=== PATIENT | male | born 1945 | race Caucasian/White ===

== ENCOUNTER 2022-03-11 20:50 | Emergency (ER) | payer MEDICARE, OTHER, SELFPAY ==
[2022-03-11] VITALS (23 sets, daily range): BP systolic 185–203; BP diastolic 79–108; PULSE 62–82; RESP 12–24; TEMP 35.9; O2SAT 93–98
--- NOTE | 2022-03-11 21:00 | RT.EKG_ITS ---
APPROVED REPORT Exam: Resting ECG Reason for Exam: upper abd pain Patient Location: E HR:67 bpm ECG Measurements Heart Rate 67 AXIS WY 209 P 26 QRSd 95 QRS -24 QT 383 T 8 QTc 406 Conclusion Sinus rhythm...normal P axis, V-rate 60- 99 Probable left atrial enlargement...P >50mS, <-0.10mV V1 Probable left ventricular hypertrophy...multiple LVH criteria Physician: no stemi
--- NOTE | 2022-03-11 21:00 | DI.RAD_ITS ---
Exam(s) XR CHEST 2V PA LATERAL EXAM: XR CHEST 2V PA LATERAL CLINICAL HISTORY: upper abd pain TECHNIQUE: 2D digital imaging was performed. COMPARISON: No exams were available for comparison FINDINGS: The heart is not enlarged. The lungs are clear and well expanded. No pleural effusion seen. Mediastin al contours appear intact. IMPRESSION: Normal chest. RADIATION DOSE DELIVERED: Total DLP
[2022-03-11 21:36] LABS: Abs Immature Grans 0.05 10^3/uL (0.0-0.06); Absolute Basophil Count 0.06 10^3/uL (0.0-0.2); Absolute Eosinophil Count 0.21 10^3/uL (0.0-0.7); Absolute Lymphocyte Count 1.36 10^3/uL (1.2-3.4); Absolute Monocyte Count 0.61 10^3/uL (0.1-0.8); Absolute Neutrophil Count 9.51 10^3/uL (1.2-6.7); Basophils % 0.5; Eosinophils % 1.8; HCT 43.3 % (40.0-50.0); HGB 14.9 g/dL (13.5-17.5); Immature Grans % 0.4; Lymphocytes % 11.5; MCH 29.7 pg (27.0-33.0); MCHC 34.4 % (32.0-36.0); MCV 86 fL (80-95); MPV 10.2 fL (8.0-11.0); Monocytes % 5.2; Neutrophils % 80.6; Platelet Count 223 10^3/uL (130-400); RBC 5.01 10^6/uL (4.36-5.78); RDW 11.9 % (11.8-14.1); RDW-SD 37.8 fL
[2022-03-11] MEDS: Normal Saline 1,000 ML 1000 ML IV (21:45)
[2022-03-11] MEDS: HYDROmorphone 2 MG/ML SYR 0.5 MG IVP (21:47)
[2022-03-11] MEDS: Ondansetron 4 MG/2 ML VIAL IVP (21:48)
[2022-03-11 21:52] LABS: Prothrombin Time 9.9 sec (9.3-11.0)
[2022-03-11 21:57] LABS: ALT 25 U/L (16-63); AST 19 U/L (15-37); Albumin 4.1 g/dL (3.4-5.0); Alkaline Phosphatase 82 U/L (46-116); Anion Gap 7.9 mmol/L (3-11); BUN 23 mg/dL (7-18); Bilirubin, Total 0.3 mg/dL (0.2-1.0); CO2 29.1 mmol/L (21.0-32.0); CREATININE 1.2 mg/dL (0.70-1.30); Calcium 8.8 mg/dL (8.5-10.1); Chloride 103 mmol/L (98-107); Estimated GFR 62.67 (mL/min/1.73m2); Glucose 175 mg/dL (74-106); Potassium 3.8 mmol/L (3.5-5.1); Sodium 140 mmol/L (136-145); Troponin I < 50 ng/L (<or=60)
--- NOTE | 2022-03-11 22:07 | ED.GENADUL_ITS ---
Discharge Plan Disposition Patient Disposition: HOME Condition: Improving Discharge Details Clinical Impression: Abdominal pain Primary Care Provider: Unknown,Unknown ED Provider: Deejay Queen Home Meds and New Rx's Prescriptions: Continued carvedilol 25 mg Tablet 25 mg PO BID chlorthalidone 25 mg Tablet 12.5 mg PO DAILY multivitamin Tablet 1 tab PO DAILY losartan 100 mg Tablet 100 mg PO DAILY nitroglycerin [Nitrostat] 0.4 mg Tablet, Sublingual 0.4 mg sublingual DIRECTED amlodipine 2.5 mg Tablet 2.5 mg PO DAILY Discharge Instructions Instructions: Abdominal Pain (ED) Additional Instructions: Zofran and oxycodone as directed, oxycodone may cause drowsiness and/or constipation. You may want to take an [id number] stool softener while taking this medication. As we discussed, a bland diet, avoid fatty, greasy, fried foods. Please watch for new or worsening symptoms and return to the ER for any concerns. Lastly, I have placed you on the care management list to help expedite primary care follow-up locally as well as a surgical referral to discuss elective cholecystectomy. Referrals: Desirae Sanchez MD [ [facility] STAFF PHYSICIAN] - Medical Decision Making This is a 76-year-old gentleman with a past medical history of hypertension, cardiac stent placement roughly 10 years ago, known cholelithiasis, presenting to the ER for concern of a gallbladder attack. Patient states he was feeling well all day today and then had a rich sausage soup just before 6 PM and soon after began having a right upper quadrant pain, sharp associate with nausea and vomiting. He states this feels very similar to his previous gallbladder episode. He is typically seen in [place] but is in the process of splitting time between there and here, does not have any local follow-up here. Patient states that he did get evaluated by a surgical team, gallstones noted, and likely elective surgical cholecystectomy moving forward. He denies any fever, chest pain, shortness of breath, diarrhea, constipation, ripping or tearing sensation in his abdomen or chest. Patient presents afebrile. Plan is to obtain IV access, initiate routine screening laboratory values including an EKG and a single troponin although extremely low suspicion for atypical chest pain presentation. Patient will only have a single troponin as his symptoms did begin over 3 hours ago. Patient reports that he has not taken his hypertensive medications this evening. We will provide IV Zofran, fluids, Dilaudid, and reassess. Laboratory values reveal a minimal nonspecific leukocytosis of 11.80. Coags unremarkable. Electrolytes unremarkable. Creatinine 1.2 with a GFR of 62.67. LFTs unremarkable. Lipase 107. Troponin less than 50. Patient witnessed ambulating to the restroom steadily multiple times. Upon reevaluation he states that his nausea and vomiting has resolved completely and his pain is barely noticeable. He appears significantly more comfortable. We will provide 5 IV Lopressor as he did not take his blood pressure medications this evening. Repeat blood pressure of 188/78. Again he denies headache, visual changes, neck pain, chest pain, shortness of breath, ripping or tearing sensation. Patient reports that he is feeling much improved and is comfortable being discharged in his current condition. I will place him on the care management list to help expedite both outpatient primary care and surgical follow-up. I will also provide him a take-home pack of Zofran and oxycodone this evening. We did discuss the importance of adhering to a gallbladder friendly diet. Standard discharge and return precautions were provided. Patient understands, is agreeable to this plan, and has no additional questions or concerns upon discharge. This documentation was generated using [employer] dictation system, please disregard any oddities of phrase or misspellings. Imaging Data Radiologic Study: Attestation: I personally reviewed and interpreted this imaging study as follows: Imaging: X-Ray Radiologist's impression: PROCEDURE INFORMATION: Exam: XR Chest Exam date and time: 03/11/2022 10:02 PM Age: 76 years old Clinical indication: Other: Upper abd pain TECHNIQUE: Imaging protocol: Radiologic exam of the chest. Views: 2 views. COMPARISON: No relevant prior studies available. FINDINGS: Lungs: Mild chronic interstitial prominence. No consolidation. Pleural spaces: No pleural effusion. No pneumothorax. Heart/Mediastinum: Mildly tortuous aorta. No cardiomegaly. Bones/joints: Unremarkable. IMPRESSION: No acute findings. Lab Data Lab results reviewed: Yes I reviewed the patient's lab results. Labs: Laboratory Tests Range/Units 03/11/22 03/11/22 03/11/22 21:23 21:23 21:23 WBC (4.4-10.8) 10^3/uL 11.80 H RBC (4.36-5.78) 10^6/uL 5.01 Hgb (13.5-17.5) g/dL 14.9 Hct (40.0-50.0) % 43.3 MCV (80-95) fL 86 MCH (27.0-33.0) pg 29.7 MCHC (32.0-36.0) % 34.4 RDW (11.8-14.1) % 11.9 Plt Count (130-400) 10^3/uL 223 MPV (8.0-11.0) fL 10.2 Immature Gran % 0.4 Neutrophils % 80.6 Lymphocytes % 11.5 Monocytes % 5.2 Eosinophils % 1.8 Basophils % 0.5 Nucleated RBC % (0.0-0.3) % 0.0 Absolute Neutrophils (1.2-6.7) 10^3/uL 9.51 H Absolute Lymphocytes (1.2-3.4) 10^3/uL 1.36 Absolute Monocytes (0.1-0.8) 10^3/uL 0.61 Absolute Eosinophils (0.0-0.7) 10^3/uL 0.21 Absolute Basophils (0.0-0.2) 10^3/uL 0.06 PT (9.3-11.0) sec 9.9 INR (0.9-1.1) 1.0 APTT (21.0-27.5) sec 23.0 Sodium (136-145) mmol/L 140 Potassium (3.5-5.1) mmol/L 3.8 Chloride (98-107) mmol/L 103 Carbon Dioxide (21.0-32.0) mmol/L 29.1 Anion Gap (3-11) mmol/L 7.9 BUN (7-18) mg/dL 23 H Creatinine (0.70-1.30) mg/dL 1.2 Est GFR (CKD-EPI 2020) (mL/min/1.73m2) 62.67 Glucose (74-106) mg/dL 175 H Calcium (8.5-10.1) mg/dL 8.8 Magnesium (1.8-2.4) mg/dL 2.0 Total Bilirubin (0.2-1.0) mg/dL 0.3 AST (15-37) U/L 19 ALT (16-63) U/L 25 Alkaline Phosphatase (46-116) U/L 82 Troponin I (<or=60) ng/L < 50 Total Protein (6.4-8.2) g/dL 8.0 Albumin (3.4-5.0) g/dL 4.1 Lipase (73-393) U/L Range/Units 03/11/22 21:23 WBC (4.4-10.8) 10^3/uL RBC (4.36-5.78) 10^6/uL Hgb (13.5-17.5) g/dL Hct (40.0-50.0) % MCV (80-95) fL MCH (27.0-33.0) pg MCHC (32.0-36.0) % RDW (11.8-14.1) % Plt Count (130-400) 10^3/uL MPV (8.0-11.0) fL Immature Gran % Neutrophils % Lymphocytes % Monocytes % Eosinophils % Basophils % Nucleated RBC % (0.0-0.3) % Absolute Neutrophils (1.2-6.7) 10^3/uL Absolute Lymphocytes (1.2-3.4) 10^3/uL Absolute Monocytes (0.1-0.8) 10^3/uL Absolute Eosinophils (0.0-0.7) 10^3/uL Absolute Basophils (0.0-0.2) 10^3/uL PT (9.3-11.0) sec INR (0.9-1.1) APTT (21.0-27.5) sec Sodium (136-145) mmol/L Potassium (3.5-5.1) mmol/L Chloride (98-107) mmol/L Carbon Dioxide (21.0-32.0) mmol/L Anion Gap (3-11) mmol/L BUN (7-18) mg/dL Creatinine (0.70-1.30) mg/dL Est GFR (CKD-EPI 2020) (mL/min/1.73m2) Glucose (74-106) mg/dL Calcium (8.5-10.1) mg/dL Magnesium (1.8-2.4) mg/dL Total Bilirubin (0.2-1.0) mg/dL AST (15-37) U/L ALT (16-63) U/L Alkaline Phosphatase (46-116) U/L Troponin I (<or=60) ng/L Total Protein (6.4-8.2) g/dL Albumin (3.4-5.0) g/dL Lipase (73-393) U/L 107 ECG Data Attestation: I personally reviewed and interpreted this ECG (s) as follows: Interpretation: Sinus rhythm, ventricular rate 67. No STEMI. HPI General Mode of arrival: ambulatory . Date/Time Provider Initiated Documentation: 03/11/22 21:09 . Limitations to Documentation: no limitations . Information obtained by: patient and family . History of Present Illness 76 year old M presents to the emergency department with the chief complaint of RUQ pain, described as moderate, with intensity rated at 4. Quality is described as aching, and is localized to the abdomen. Patient reports no radiation. Patient started experiencing this hour(s) (3) and it has been constant. No relieving factors improve symptom(s), Eating worsens symptoms (ate a rich diner) . Patient notes nausea/vomiting; denies chest pain, cough and fever/chills. Patient did receive the following treatments prior to arrival, none Related Data Home Medications Medication Instructions Recorded Confirmed amlodipine 2.5 mg tablet 2.5 mg PO DAILY 03/11/22 03/11/22 carvedilol 25 mg tablet 25 mg PO BID 03/11/22 03/11/22 chlorthalidone 25 mg tablet 12.5 mg PO DAILY 03/11/22 03/11/22 losartan 100 mg tablet 100 mg PO DAILY 03/11/22 03/11/22 multivitamin 1 tab PO DAILY 03/11/22 03/11/22 nitroglycerin 0.4 mg sublingual 0.4 mg sublingual DIRECTED 03/11/22 03/11/22 tablet (Nitrostat) Allergies Allergy/AdvReac Type Severity Reaction Status Date / Time morphine Allergy Severe shock Unverified 03/11/22 21:06 General Stated Complaint: Abd Prob JUVENTINO: 3 Review of Systems Constitutional Constitutional: Denies fever(s) and Denies headache(s) ENT Ears, Nose, Mouth, and Throat: Denies headache(s) and Denies neck pain Cardiovascular Cardiovascular: Denies chest pain and Denies dyspnea Respiratory Respiratory: Denies cough and Denies dyspnea Gastrointestinal Gastrointestinal: Reports abdominal pain, Denies constipation, Denies diarrhea, Reports nausea and Reports vomiting Genitourinary Genitourinary: Denies dysuria Musculoskeletal Musculoskeletal: Denies back pain and Denies neck pain Integumentary/Breasts Skin/Breast: Denies rash Neurologic Neurologic: Denies headache(s) PFSH All Active Problems (Updated 03/11/22 @ 23:22 by ESTELITA Harvey) Abdominal pain (Acute) Social History Smoking/Tobacco Use Status: Former Tobacco Use Smoking risk assessment performed?: Yes Alcohol Intake: current Alcohol Intake frequency: 0-2 drinks per day Alcohol type: beer Drug use: Never Substance use type: does not use Do you feel safe at home: Yes Do you feel safe in your relationship?: Yes Exam Const General: cooperative, healthy appearing and other (Occasional dry heave) Orientation: alert, awake and oriented x3 HENMT Head: normal to inspection, normocephalic and atraumatic Face and sinus: normal facial exam Mouth: moist mucous membranes Throat: posterior oropharynx normal Eyes General: appearance normal, both eyes and all related structures Conjunctivae: conjunctivae normal Neck Neck: normal visual inspection, full ROM, no meningeal signs, trachea midline and supple Resp Effort & Inspection: normal respiratory effort and able to speak in complete sentences Auscultation: clear to auscultation bilaterally Cardio Rate: regular rate Rhythm: regular rhythm GI Inspection: normal to inspection Palpation: soft, not firm, no guarding, no pulsatile masses and tender in the RUQ; Clifton's sign negative Auscultation: normal bowel sounds Back/Spine/Pelvis Back: no CVA tenderness and No back tenderness Skin General skin exam: no rashes or lesions noted Neuro General: patient alert, patient awake, moves all extremities and no focal motor deficits Cognition: normal cognition Speech: speech normal Gait: normal gait Motor: muscle tone normal throughout Sensory Exam: no sensory deficits noted Extrem General: normal to inspection, full ROM and capillary refill normal Psych Appearance: grossly normal Mental Status: mental status grossly normal Course Vital Signs Vital signs: Vital Signs Temperature 35.9 C L 03/11/22 21:00 Pulse 78 03/11/22 21:00 Respiratory Rate 18 03/11/22 21:00 Blood Pressure 185/108 H 03/11/22 21:00 Pulse Oximetry 98 03/11/22 21:00 Temperature 35.9 C L 03/11/22 21:00 Temperature Source Skin 03/11/22 21:00 Pulse 71 03/11/22 21:30 Pulse 76 03/11/22 22:05 Respiratory Rate 22 03/11/22 22:05 Respiratory Effort 03/11/22 21:33 Blood Pressure 190/98 H 03/11/22 21:30 Blood Pressure Mean 122 03/11/22 21:30 Pulse Oximetry 94 03/11/22 22:05 Oxygen Delivery Method Room Air 03/11/22 21:00 Oxygen Flow Rate 0 03/11/22 21:00 Pain Level 1 03/11/22 22:06 Lab/Test Results Lab/Test Results: Laboratory Tests Range/Units 03/11/22 03/11/22 03/11/22 21:23 21:23 21:23 WBC (4.4-10.8) 10^3/uL 11.80 H RBC (4.36-5.78) 10^6/uL 5.01 Hgb (13.5-17.5) g/dL 14.9 Hct (40.0-50.0) % 43.3 MCV (80-95) fL 86 MCH (27.0-33.0) pg 29.7 MCHC (32.0-36.0) % 34.4 RDW (11.8-14.1) % 11.9 Plt Count (130-400) 10^3/uL 223 MPV (8.0-11.0) fL 10.2 Immature Gran % 0.4 Neutrophils % 80.6 Lymphocytes % 11.5 Monocytes % 5.2 Eosinophils % 1.8 Basophils % 0.5 Nucleated RBC % (0.0-0.3) % 0.0 Absolute Neutrophils (1.2-6.7) 10^3/uL 9.51 H Absolute Lymphocytes (1.2-3.4) 10^3/uL 1.36 Absolute Monocytes (0.1-0.8) 10^3/uL 0.61 Absolute Eosinophils (0.0-0.7) 10^3/uL 0.21 Absolute Basophils (0.0-0.2) 10^3/uL 0.06 PT (9.3-11.0) sec 9.9 INR (0.9-1.1) 1.0 APTT (21.0-27.5) sec 23.0 Sodium (136-145) mmol/L 140 Potassium (3.5-5.1) mmol/L 3.8 Chloride (98-107) mmol/L 103 Carbon Dioxide (21.0-32.0) mmol/L 29.1 Anion Gap (3-11) mmol/L 7.9 BUN (7-18) mg/dL 23 H Creatinine (0.70-1.30) mg/dL 1.2 Est GFR (CKD-EPI 2020) (mL/min/1.73m2) 62.67 Glucose (74-106) mg/dL 175 H Calcium (8.5-10.1) mg/dL 8.8 Magnesium (1.8-2.4) mg/dL 2.0 Total Bilirubin (0.2-1.0) mg/dL 0.3 AST (15-37) U/L 19 ALT (16-63) U/L 25 Alkaline Phosphatase (46-116) U/L 82 Troponin I (<or=60) ng/L < 50 Total Protein (6.4-8.2) g/dL 8.0 Albumin (3.4-5.0) g/dL 4.1 PAWSS Have you Been Recently Intoxicated or Drunk Within the Last 30 days?: No Have you Ever Experienced Previous Episodes of Alcohol Withdrawal?: No Have you ever Experienced Withdrawal Seizures?: No Have you ever Experienced Delirium Tremens(DT)s?: No Have you ever undergone Alcohol Rehabilitation Treatment (i.e, inpt ot outpatient treatment programs)?: No Have you ever Experienced Blackouts?: No Have you ever Combined Alcohol with other Downers within the last 90 days?: No Have you ever Combined Alcohol with any other Substance of Abuse during the last 90 days?: No Positive Blood Alcohol level on Presentation? [PCS.BAL]: No Evidence of Increased Autonomic Activity (i.e. HR>120, tremor, sweating, agitation, nausea)?: No Result: 0
[2022-03-11 22:13] LABS: Lipase 107 U/L (73-393)
--- NOTE | 2022-03-11 22:15 | DI.VRAD_ITS ---
PROCEDURE INFORMATION: Exam: XR Chest Exam date and time: 03/11/2022 10:02 PM Age: 76 years old Clinical indication: Other: Upper abd pain TECHNIQUE: Imaging protocol: Radiologic exam of the chest. Views: 2 views. COMPARISON: No relevant prior studies available. FINDINGS: Lungs: Mild chronic interstitial prominence. No consolidation. Pleural spaces: No pleural effusion. No pneumothorax. Heart/Mediastinum: Mildly tortuous aorta. No cardiomegaly. Bones/joints: Unremarkable. IMPRESSION: No acute findings. Dictated and Authenticated by: Gerhard Hernandez MD. Ordering:TRICIA Villalba MD
[2022-03-11] MEDS: Metoprolol 5 MG/5 ML VIAL IVP (22:37)
[2022-03-11] MEDS: Ondansetron O.D.T. 4 MG TABEF, 3 TABS/BTL PO (23:00)
--- NOTE | 2022-03-12 09:38 | CMACTNOTE_ITS ---
- If Service Date Differs Date of service: 03/12/22 Time of Service: 09:38 Care Management Activity Note Tony is seen in the ED for abdominal pain. At the request of ED provider, ERIC coordinates a referral to Romero Mack MD, of [facility], on-call provider, to assist Tony in obtaining a follow up appointment and in establishing care with a local PCP. He has Medicare for insurance.
== END 2022-03-12 00:03 | disposition home or self-care (01) ==
PROVIDERS: Emergency Provider Physician Assistant
DX: R10.11 Right upper quadrant pain (principal); I10 Essential (primary) hypertension; Z87.891 Personal history of nicotine dependence; Z95.5 Presence of coronary angioplasty implant and graft
CPT/HCPCS: 80053; 83690; 93005; 96361; 96374; 96375; 99284; 71046; 83735; 84484; 85025; 85610; 85730; 93010; 99285; J1170; J2405

== ENCOUNTER 2022-03-13 13:43 | Inpatient (IN) | payer MEDICARE, OTHER, SELFPAY ==
[2022-03-13] VITALS (13 sets, daily range): BP systolic 102–148; BP diastolic 53–69; PULSE 63–90; RESP 10–25; TEMP 36.3–37.4; O2SAT 91–100; BMI 24.4
--- NOTE | 2022-03-13 13:45 | DI.US_ITS ---
Exam(s) US ABDOMEN LIMITED EXAM: US ABDOMEN LIMITED CLINICAL HISTORY: RUQ, hx of gallstones TECHNIQUE: Ultrasound abdomen performed using standard protocol. COMPARISON: No exams were available for comparison FINDINGS: There is no ascites evident. LIVER: Liver is mildly hyperechoic indicating element of steatosis. GALLBLADDER/BILIARY: There are gallstones noted. In addition, the gallbladder wall is thickened to 9 -10 millimeters and exhibits a stripe sign, indicative of gallbladder wall edema. In addition, this patient was tender over this area during scanning. The common hepatic duct ismildly dilated, measuring 7mm at the level of madan hepatis. PANCREAS: Not well seen due to overlying bowel gas RIGHT KIDNEY:No evidence of solid mass, calculus, nor hydronephrosis. No cortical cysts evident. IMPRESSION: 1. There is both cholelithiasis and evidence of acute cholecystitis, as described above. Common hep atic duct is slightly dilated, measuring 7 millimeters. No obvious calculus in the CBD although the lower half of the CBD is difficult to assess on this study due to overlying bowel gas. Same is true for the pancreas which was not adequately visualized. 2. No other significant ultrasound findings in the right upper quadrant. 3. There is no ascites. DATA REPOSITORY:
--- NOTE | 2022-03-13 14:00 | W.ED.GENAD ---
Discharge Plan Disposition Patient Disposition: [facility] INPATIENT Condition: Serious Discharge Details Clinical Impression: Acute cholecystitis Primary Care Provider: Unknown,Unknown ED Provider: Deejay Queen Home Meds and New Rx's Prescriptions: No Action carvedilol 25 mg Tablet 25 mg PO BID chlorthalidone 25 mg Tablet 12.5 mg PO DAILY multivitamin Tablet 1 tab PO DAILY losartan 100 mg Tablet 100 mg PO DAILY nitroglycerin [Nitrostat] 0.4 mg Tablet, Sublingual 0.4 mg sublingual DIRECTED amlodipine 2.5 mg Tablet 2.5 mg PO DAILY Medical Decision Making This is a 76-year-old gentleman past medical history of hypertension, cardiac stent, known gallstones presenting for worsening right upper quadrant pain. Examination is concerning for acute cholecystitis. Will obtain IV access, routine screening laboratory values and obtain ultrasound of the right upper quadrant. Will provide 1 L IV fluid Laboratory values reveal leukocytosis of 18.31, will obtain blood cultures. Potassium 2.9. Will obtain EKG and replenished both p.o. and IV. Creatinine 1.2 with a GFR of 62.67. Total bili 0.8 AST 14 ALT 18 alk phosphatase 78 lipase 50 Ultrasound reveals both cholelithiasis and evidence of acute cholecystitis. Patient given IV Zosyn and I have requested a surgical consultation Case discussed with Dr. Sanchez who is agreeable to admit the patient This documentation was generated using [employer] dictation system, please disregard any oddities of phrase or misspellings. Medical Records Medical records reviewed: Yes I reviewed the patient's medical records. Imaging Data Radiologic Study: Attestation: I personally reviewed and interpreted this imaging study as follows: Imaging: Ultrasound Radiologist's impression: Exam(s) US ABDOMEN LIMITED EXAM: US ABDOMEN LIMITED CLINICAL HISTORY: RUQ, hx of gallstones TECHNIQUE: Ultrasound abdomen performed using standard protocol. COMPARISON: No exams were available for comparison FINDINGS: There is no ascites evident. LIVER: Liver is mildly hyperechoic indicating element of steatosis. GALLBLADDER/BILIARY: There are gallstones noted. In addition, the gallbladder wall is thickened to 9-10 millimeters and exhibits a stripe sign, indicative of gallbladder wall edema. In addition, this patient was tender over this area during scanning. The common hepatic duct ismildly dilated, measuring 7mm at the level of madan hepatis. PANCREAS: Not well seen due to overlying bowel gas RIGHT KIDNEY:No evidence of solid mass, calculus, nor hydronephrosis. No cortical cysts evident. IMPRESSION: 1. There is both cholelithiasis and evidence of acute cholecystitis, as described above. Common hepatic duct is slightly dilated, measuring 7 millimeters. No obvious calculus in the CBD although the lower half of the CBD is difficult to assess on this study due to overlying bowel gas. Same is true for the pancreas which was not adequately visualized. 2. No other significant ultrasound findings in the right upper quadrant. 3. There is no ascites. Lab Data Lab results reviewed: Yes I reviewed the patient's lab results. Labs: 03/13/22 14:43 Blood Blood Culture - Pending 03/13/22 14:43 Blood Blood Culture - Pending Laboratory Tests Range/Units 03/13/22 03/13/22 14:02 14:02 WBC (4.4-10.8) 10^3/uL 18.31 H RBC (4.36-5.78) 10^6/uL 5.05 Hgb (13.5-17.5) g/dL 14.9 Hct (40.0-50.0) % 42.6 MCV (80-95) fL 84 MCH (27.0-33.0) pg 29.5 MCHC (32.0-36.0) % 35.0 RDW (11.8-14.1) % 11.9 Plt Count (130-400) 10^3/uL 206 MPV (8.0-11.0) fL 10.1 Immature Gran % 0.5 Neutrophils % 80.3 Lymphocytes % 7.2 Monocytes % 11.8 Eosinophils % 0.0 Basophils % 0.2 Nucleated RBC % (0.0-0.3) % 0.0 Absolute Neutrophils (1.2-6.7) 10^3/uL 14.70 H Absolute Lymphocytes (1.2-3.4) 10^3/uL 1.32 Absolute Monocytes (0.1-0.8) 10^3/uL 2.16 H Absolute Eosinophils (0.0-0.7) 10^3/uL 0.00 Absolute Basophils (0.0-0.2) 10^3/uL 0.04 RBC Morphology Normal Sodium (136-145) mmol/L 132 L Potassium (3.5-5.1) mmol/L 2.9 L Chloride (98-107) mmol/L 96 L Carbon Dioxide (21.0-32.0) mmol/L 32.0 Anion Gap (3-11) mmol/L 4.0 BUN (7-18) mg/dL 24 H Creatinine (0.70-1.30) mg/dL 1.2 Est GFR (CKD-EPI 2020) (mL/min/1.73m2) 62.67 Glucose (74-106) mg/dL 150 H Calcium (8.5-10.1) mg/dL 8.4 L Total Bilirubin (0.2-1.0) mg/dL 0.8 AST (15-37) U/L 14 L ALT (16-63) U/L 18 Alkaline Phosphatase (46-116) U/L 78 Total Protein (6.4-8.2) g/dL 7.3 Albumin (3.4-5.0) g/dL 3.3 L Lipase (73-393) U/L 50 ECG Data Attestation: I personally reviewed and interpreted this ECG (s) as follows: Interpretation: Sinus rhythm, ventricular rate of 79, no STEMI. HPI General Mode of arrival: ambulatory. Date/Time Provider Initiated Documentation: 03/13/22 13:44. Limitations to Documentation: no limitations. Information obtained by: patient and family. HPI Narrative: This is a 76-year-old gentleman, past medical history of hypertension, cardiac stent placement, known gallstones, presenting for ongoing right upper quadrant pain, mild nausea, associated with fatigue. He lives in [place] but does have a second home here and will be here for quite some time. He was seen in the ER 2 days ago, evaluation completed and he was set up with the care management team to help expedite outpatient primary care follow-up as well as surgical referral. He states since his last visit he has less diffuse upper abdominal pain and it is more concentrated in the right upper quadrant. He has felt far more tired. He reports overall decreased p.o. intake. He reports mild nausea but no vomiting. No change in bowel or bladder function. Denies fever, chest pain, shortness of breath, radiation of pain into his back or flank. Related Data Home Medications Medication Instructions Recorded Confirmed amlodipine 2.5 mg tablet 2.5 mg PO DAILY 03/11/22 03/11/22 carvedilol 25 mg tablet 25 mg PO BID 03/11/22 03/11/22 chlorthalidone 25 mg tablet 12.5 mg PO DAILY 03/11/22 03/11/22 losartan 100 mg tablet 100 mg PO DAILY 03/11/22 03/11/22 multivitamin 1 tab PO DAILY 03/11/22 03/11/22 nitroglycerin 0.4 mg sublingual 0.4 mg sublingual DIRECTED 03/11/22 03/11/22 tablet (Nitrostat) Allergies Allergy/AdvReac Type Severity Reaction Status Date / Time morphine Allergy Severe shock Unverified 03/13/22 13:53 General Stated Complaint: Abd Prob JUVENTINO: 3 Review of Systems Constitutional Constitutional: Reports fatigue, Denies fever(s) and Denies weakness Cardiovascular Cardiovascular: Denies chest pain and Denies dyspnea Respiratory Respiratory: Denies cough and Denies dyspnea Gastrointestinal Gastrointestinal: Reports abdominal pain, Denies constipation, Denies diarrhea, Reports nausea and Denies vomiting Genitourinary Genitourinary: Denies dysuria Musculoskeletal Musculoskeletal: Denies back pain Integumentary/Breasts Skin/Breast: Denies rash Neurologic Neurologic: Denies weakness Endocrine Endocrine: Reports fatigue Hematologic/Lymphatic Hematologic/Lymphatic: Denies easy bleeding and Denies easy bruising PFSH All Active Problems (Updated 03/13/22 @ 14:51 by ESTELITA Harvey) Abdominal pain (Acute) Acute cholecystitis (Acute) Social History Smoking/Tobacco Use Status: Former Tobacco Use Smoking risk assessment performed?: Yes Alcohol Intake: current Alcohol Intake frequency: 0-2 drinks per day Alcohol type: beer Drug use: Never Substance use type: does not use Do you feel safe at home: Yes Do you feel safe in your relationship?: Yes Exam Const General: cooperative, healthy appearing and no acute distress Orientation: alert and awake [facility] Head: normal to inspection, normocephalic and atraumatic Face and sinus: normal facial exam Mouth: moist mucous membranes Eyes General: appearance normal, both eyes and all related structures Conjunctivae: conjunctivae normal Neck Neck: normal visual inspection, trachea midline and supple Resp Effort & Inspection: normal respiratory effort and able to speak in complete sentences Auscultation: clear to auscultation bilaterally Cardio Rate: regular rate Rhythm: regular rhythm GI Inspection: normal to inspection Palpation: soft, not firm, guarding in the RUQ, no pulsatile masses and tender Clifton's sign positive Auscultation: normal bowel sounds Back/Spine/Pelvis Back: no CVA tenderness and No back tenderness Skin General skin exam: no rashes or lesions noted Neuro General: patient alert, patient awake, moves all extremities and no focal motor deficits Cognition: normal cognition Speech: speech normal Gait: normal gait Sensory Exam: no sensory deficits noted Extrem General: normal to inspection, full ROM, capillary refill normal, no pedal edema and no calf tenderness Psych Appearance: grossly normal Mental Status: mental status grossly normal Course Vital Signs Vital signs: Vital Signs Temperature 37.2 C 03/13/22 13:48 Pulse 90 03/13/22 13:48 Respiratory Rate 16 03/13/22 13:48 Blood Pressure 139/63 03/13/22 13:48 Pulse Oximetry 94 03/13/22 13:48 Temperature 37.2 C 03/13/22 13:48 Temperature Source Oral 03/13/22 13:48 Pulse 90 03/13/22 13:48 Respiratory Rate 16 03/13/22 13:48 Respiratory Effort Non-Labored 03/13/22 13:52 Blood Pressure 139/63 03/13/22 13:48 Blood Pressure Position Sitting 03/13/22 13:48 Pulse Oximetry 94 03/13/22 13:48 Oxygen Delivery Method Room Air 03/13/22 13:48 Oxygen Flow Rate 0 03/13/22 13:48 Pain Level 5 03/13/22 13:48 PAWSS Have you Been Recently Intoxicated or Drunk Within the Last 30 days?: No Have you Ever Experienced Previous Episodes of Alcohol Withdrawal?: No Have you ever Experienced Withdrawal Seizures?: No Have you ever Experienced Delirium Tremens(DT)s?: No Have you ever undergone Alcohol Rehabilitation Treatment (i.e, inpt ot outpatient treatment programs)?: No Have you ever Experienced Blackouts?: No Have you ever Combined Alcohol with other Downers within the last 90 days?: No Have you ever Combined Alcohol with any other Substance of Abuse during the last 90 days?: No Positive Blood Alcohol level on Presentation? [PCS.BAL]: No Evidence of Increased Autonomic Activity (i.e. HR>120, tremor, sweating, agitation, nausea)?: No Result: 0
[2022-03-13] MEDS: Normal Saline 1,000 ML 1000 ML IV (14:05)
[2022-03-13 14:07] LABS: Absolute Monocyte Count 2.16 10^3/uL (0.1-0.8); Basophils % 0.2; HCT 42.6 % (40.0-50.0); HGB 14.9 g/dL (13.5-17.5); Immature Grans % 0.5; Lymphocytes % 7.2; MCH 29.5 pg (27.0-33.0); MCV 84 fL (80-95); MPV 10.1 fL (8.0-11.0); Monocytes % 11.8; Neutrophils % 80.3; Platelet Count 206 10^3/uL (130-400); RBC 5.05 10^6/uL (4.36-5.78); RDW 11.9 % (11.8-14.1); RDW-SD 36.2 fL; WBC 18.31 10^3/uL (4.4-10.8)
[2022-03-13 14:13] LABS: Absolute Basophil Count 0.04 10^3/uL (0.0-0.2); Absolute Lymphocyte Count 1.32 10^3/uL (1.2-3.4)
[2022-03-13 14:22] LABS: ALT 18 U/L (16-63); AST 14 U/L (15-37); Albumin 3.3 g/dL (3.4-5.0); Alkaline Phosphatase 78 U/L (46-116); BUN 24 mg/dL (7-18); Bilirubin, Total 0.8 mg/dL (0.2-1.0); CREATININE 1.2 mg/dL (0.70-1.30); Calcium 8.4 mg/dL (8.5-10.1); Chloride 96 mmol/L (98-107); Estimated GFR 62.67 (mL/min/1.73m2); Glucose 150 mg/dL (74-106); Lipase 50 U/L (73-393); Sodium 132 mmol/L (136-145); Total Protein 7.3 g/dL (6.4-8.2)
[2022-03-13 14:23] LABS: Potassium 2.9 mmol/L (3.5-5.1)
--- NOTE | 2022-03-13 14:30 | RT.EKG_ITS ---
APPROVED REPORT Exam: Resting ECG Reason for Exam: hypokalemia Patient Location: E HR:79 bpm ECG Measurements Heart Rate 79 AXIS WA 183 P 38 QRSd 98 QRS -37 QT 379 T 1 QTc 434 Conclusion Sinus rhythm...normal P axis, V-rate 60- 99 Left axis deviation...QRS axis (-30,-90)
[2022-03-13 14:33] LABS: Diff Comment Diff Reviewed; RBC Morphology Normal
[2022-03-13] MEDS: POTASSIUM CHLORIDE 10 MEQ/100 ML BAG 100 MEQ IVPB (14:45)
[2022-03-13] MEDS: Potassium Chloride 20 MEQ TABCR 40 MEQ PO (14:46)
[2022-03-13 15:13] LABS: Source Nasal/Nares
[2022-03-13 15:55] LABS: COVID-19 PCR Negative (Negative)
--- NOTE | 2022-03-13 16:02 | W.ANESPRE ---
General Info Date of Service Date Performed: 03/13/22 Height: 5 ft 11 in Weight: 79.379 kg Body Mass Index (BMI): 24.4 Surgical Procedure: Operation Date: 03/13/22 16:10 Proposed Procedure Side Surgeon p Cholecystectomy Laparoscopic Desirae Sanchez MD Meds Allergies and Home Medications Allergies Allergy/AdvReac Type Severity Reaction Status Date / Time morphine Allergy Severe shock Unverified 03/13/22 13:53 Home Medication Medication Instructions Recorded amlodipine 2.5 mg tablet 2.5 mg PO DAILY 03/11/22 carvedilol 25 mg tablet 25 mg PO BID 03/11/22 chlorthalidone 25 mg tablet 12.5 mg PO DAILY 03/11/22 losartan 100 mg tablet 100 mg PO DAILY 03/11/22 multivitamin 1 tab PO DAILY 03/11/22 nitroglycerin 0.4 mg sublingual 0.4 mg sublingual DIRECTED 03/11/22 tablet (Nitrostat) Current Visit Medications: Current Medications Generic Name Dose Route Start Last Admin Trade Name Freq PRN Reason Stop Dose Admin IV Miscellaneous Supplies 1 each 03/13/22 14:00 Iv Access IV DIRECTED [facility] Active Problems Active Problems: Problem Status Onset Code Abdominal pain R10.9 Acute cholecystitis K81.0 Medical History Medical History (Updated 03/13/22 @ 16:07 by Desirae Sanchez MD) CVD (cardiovascular disease) Hypertension Surgical History Surgical History (Updated 03/13/22 @ 16:07 by Desirae Sanchez MD) History of heart artery stent (~2011) Tobacco Smoking/Tobacco Use Status: Former Tobacco Use Alcohol Alcohol Intake: current Alcohol intake frequency: 0-2 drinks per day Alcohol type: beer Substance Use Substance use: Never Substance use type: does not use Vital Signs and Lab Results Vital Signs Most Recent Vital Signs in EMR: Most Recent Vital Signs Temp Pulse Resp BP Pulse Ox 37.2 C 90 16 139/63 94 03/13/22 13:48 03/13/22 13:48 03/13/22 13:48 03/13/22 13:48 03/13/22 13:48 Lab Results Result Diagrams: 03/13/22 14:02 03/13/22 14:02 Blood Type / Crossmatch: No Data to Display Complete Blood Count: White Blood Count 18.31 10^3/uL (4.4-10.8) H 03/13/22 14:02 Red Blood Count 5.05 10^6/uL (4.36-5.78) 03/13/22 14:02 Hemoglobin 14.9 g/dL (13.5-17.5) 03/13/22 14:02 Hematocrit 42.6 % (40.0-50.0) 03/13/22 14:02 Platelet Count 206 10^3/uL (130-400) 03/13/22 14:02 Complete Metabolic Panel: Sodium Level 132 mmol/L (136-145) L 03/13/22 14:02 Potassium Level 2.9 mmol/L (3.5-5.1) L 03/13/22 14:02 Chloride Level 96 mmol/L (98-107) L 03/13/22 14:02 Carbon Dioxide Level 32.0 mmol/L (21.0-32.0) 03/13/22 14:02 Blood Urea Nitrogen 24 mg/dL (7-18) H 03/13/22 14:02 Creatinine 1.2 mg/dL (0.70-1.30) 03/13/22 14:02 Magnesium Level 2.0 mg/dL (1.8-2.4) 03/11/22 21:23 Calcium Level 8.4 mg/dL (8.5-10.1) L 03/13/22 14:02 Albumin 3.3 g/dL (3.4-5.0) L 03/13/22 14:02 Glucose Level 150 mg/dL (74-106) H 03/13/22 14:02 Liver Function Panel: Alanine Aminotransferase (ALT/SGPT) 18 U/L (16-63) 03/13/22 14:02 Aspartate Amino Transf (AST/SGOT) 14 U/L (15-37) L 03/13/22 14:02 Coagulation Panel: INR International Normalized Ratio 1.0 (0.9-1.1) 03/11/22 21: Prothrombin Time 9.9 sec (9.3-11.0) 03/11/22 21:23 Activated Partial Thromboplast Time 23.0 sec (21.0-27.5) 03/11/22 21:23 Cardiac Panel: Troponin I < 50 ng/L (<or=60) 03/11/22 Arterial Blood Gas: No Data to Display Venous Blood Gas: No Data to Display Pancreas Panel: Lipase 50 U/L (73-393) 03/13/22 14:02 Thyroid Panel: No Data to Display Infectious Disease: Coronavirus (COVID-19)(PCR) Pending 03/13/22 15:10 Coronavirus 2019 Source Nasal/Nares 03/13/22 15:10 Blood Cultures: No Data to Display Toxicology Panel: No Data to Display Anesthesia Assessment and Plan Anesthesia History Personal History: No History of Anesthesia Complications Family History: No Family History of Anesthesia Complications Exercise Tolerance Exercise Tolerance: Metabolic Equivalents>4 Cardiac & Pulmonary Exam Cardiac Exam: Normal S1/S2 Heart Sounds Pulmonary Exam: Clear Bilateral Breath Sounds Implantable Cardiac Device Does patient have a Pacemaker or an ICD?: No Airway Exam Known Difficult Airway: No Mallampati Class: 1 Mouth Opening: Normal (> 3cm) Thyromental Distance: Greater than 3 cm Neck Range of Motion: Full ROM Neck Circumference: Normal Teeth Condition: Normal Dentition ASA Classification ASA Score: ASA 3 Emergency Case?: Yes NPO Status NPO Status: Full Stomach Anesthesia Plan Resuscitation Status: Full Code Anesthesia Technique: General Anesthesia Airway Planned: Endotracheal Tube Pain Management: Other (resuce block if open and anatomically appropriate. ) Monitors Used: Standard Monitors Preoperative Comments:: 76 oy male for urgent lap huong with increasing pain and WBC. Currently in the ED. Sig PMHx: IA with stents in 2011 (does not use NTG currently, has been doing well), HTN (140-150/ at home, dual agents), recent ECHO and stress in [place] which he states was normal.
--- NOTE | 2022-03-13 16:03 | HPE_ITS ---
Assessment and Plan Assessment and plan (1) Acute cholecystitis: Status: Acute Assessment and plan: Mr. Jimenez is a 76-year-old gentleman, with a past medical history significant for hypertension, cardiac stent placement (2011), known gallstones, presenting for ongoing right upper quadrant pain, mild nausea, associated with fatigue. US and WBC are consistent with acute cholecystitis. Discussed Laparoscopic Cholecystectomy, possibly open. Risks, benefits and complications have been reviewed. Questions have been answered to his satisfaction and he wishes to proceed. No guarantees were given or implied. Proceed with Laparoscopic Cholecystectomy History of Present Illness Consults Consult date: 03/13/22 Requesting physician: Deejay Queen Narrative: Mr. Jimenez is a 76-year-old gentleman, with a past medical historysignificant for hypertension, cardiac stent placement (2011), known gallstones, presenting for ongoing right upper quadrant pain, mild nausea, associated with fatigue.? He lives in [place] but does have a second home here and will be here for quite some time.? He was seen in the ER 2 days ago, evaluation completed and he was set up with the care management team to help expedite outpatient primary care follow-up as well as surgical referral.? He states since his last visit he has less diffuse upper abdominal pain and it is more concentrated in the right upper quadrant.? He has felt far more tired.? He reports overall decreased p.o. intake.? He reports mild nausea but no vomiting.? No change in bowel or bladder function.? Denies fever, chest pain, shortness of breath, radiation of pain into his back or flank. Workup in the ER revealed: leukocytosis of 18.31 Potassium 2.9.? Will obtain EKG and replenished both p.o. and IV.? Creatinine 1.2 with a GFR of 62.67.? Total bili 0.8 AST 14 ALT 18 alk phosphatase 78 lipase 50 I reviewed the US images myself: Ultrasound reveals both cholelithiasis and evidence of acute cholecystitis.? Radiologist's impression: Exam(s) US ABDOMEN LIMITED EXAM:? US ABDOMEN LIMITED CLINICAL HISTORY:? RUQ, hx of gallstones TECHNIQUE:? Ultrasound abdomen performed using standard protocol. COMPARISON:? No exams were available for comparison FINDINGS: There is no ascites evident. LIVER: Liver is mildly hyperechoic indicating element of steatosis. GALLBLADDER/BILIARY: There are gallstones noted.? In addition, the gallbladder wall is thickened to 9-10 millimeters and exhibits a stripe sign, indicative of gallbladder wall edema.? In addition, this patient was tender over this area during scanning. The common hepatic duct ismildly dilated, measuring 7mm at the level of madan hepatis. PANCREAS: Not well seen due to overlying bowel gas RIGHT KIDNEY:No evidence of solid mass, calculus, nor hydronephrosis. No cortical cysts evident. IMPRESSION: 1.? There is both cholelithiasis and evidence of acute cholecystitis, as described above.? Common hepatic duct is slightly dilated, measuring 7 mill imeters.? No obvious calculus in the CBD although the lower half of the CBD is difficult to assess on this study due to overlying bowel gas.? Same is true for the pancreas which was not adequately visualized. 2.? No other significant ultrasound findings in the right upper quadrant. 3.? There is no ascites. Review of Systems Constitutional Constitutional: Reports fatigue, Reports fever(s), Denies headache(s), Reports poor appetite and Denies weight loss Eyes Eyes: Denies change in vision ENT Ears, Nose, Mouth, and Throat: Denies headache(s) Cardiovascular Cardiovascular: Denies chest pain, Denies chest pain at rest, Denies irregular heart rhythm, Denies palpitations and Denies dyspnea Respiratory Respiratory: Denies cough and Denies dyspnea Gastrointestinal Gastrointestinal: Reports as per HPI Genitourinary Genitourinary: Reports system reviewed and no additional complaints, except as documented Musculoskeletal Musculoskeletal: Reports system reviewed and no additional complaints, except as documented Integumentary/Breasts Skin/Breast: Reports system reviewed and no additional complaints, except as documented Neurologic Neurologic: Reports system reviewed and no additional complaints, except as documented and Denies headache(s) Psychiatric Psychiatric: Reports system reviewed and no additional complaints, except as documented Endocrine Endocrine: Reports system reviewed and no additional complaints, except as documented, Reports fatigue and Denies palpitations PFSH All Active Problems (Updated 03/13/22 @ 16:07 by Desirae Sanchez MD) Abdominal pain (Acute) Acute cholecystitis (Acute) Medical History (Updated 03/13/22 @ 16:07 by Desirae Sanchez MD) CVD (cardiovascular disease) Hypertension Surgical History (Updated 03/13/22 @ 16:07 by Desirae Sanchez MD) History of heart artery stent (~2011) Social History Smoking/Tobacco Use Status: Former Tobacco Use Smoking risk assessment performed?: Yes Alcohol Intake: current Alcohol Intake frequency: 0-2 drinks per day Alcohol type: beer Drug use: Never Substance use type: does not use Do you feel safe at home: Yes Do you feel safe in your relationship?: Yes Meds Allergies and Home Medications Allergies Allergy/AdvReac Type Severity Reaction Status Date / Time morphine Allergy Severe shock Unverified 03/13/22 13:53 Home Medications Medication Instructions Recorded Confirmed Type amlodipine 2.5 mg tablet 2.5 mg PO DAILY 03/11/22 03/11/22 History carvedilol 25 mg tablet 25 mg PO BID 03/11/22 03/11/22 History chlorthalidone 25 mg tablet 12.5 mg PO DAILY 03/11/22 03/11/22 History losartan 100 mg tablet 100 mg PO DAILY 03/11/22 03/11/22 History multivitamin 1 tab PO DAILY 03/11/22 03/11/22 History nitroglycerin 0.4 mg sublingual 0.4 mg sublingual DIRECTED 03/11/22 03/11/22 History tablet (Nitrostat) Exam Const General: cooperative, comfortable and no acute distress Orientation: alert and oriented x3 HENMT Head: normocephalic and atraumatic Eyes Pupils: PERRL Resp Auscultation: clear to auscultation bilaterally Cardio Rate: regular rate Rhythm: regular rhythm Heart Sounds: no gallops, no murmurs and no rubs GI Palpation: soft and tender in the RUQ Results Imaging Abdominal ultrasound report/results: report reviewed and image reviewed Labs Result diagrams: 03/13/22 14:02 03/13/22 14:02 Labs: Laboratory Results - last 24 hr 03/13/22 03/13/22 03/13/22 14:02 14:02 15:10 WBC 18.31 H RBC 5.05 Hgb 14.9 Hct 42.6 MCV 84 MCH 29.5 MCHC 35.0 RDW 11.9 Plt Count 206 MPV 10.1 Immature Gran % 0.5 Neutrophils % 80.3 Lymphocytes % 7.2 Monocytes % 11.8 Eosinophils % 0.0 Basophils % 0.2 Nucleated RBC % 0.0 Absolute Neutrophils 14.70 H Absolute Lymphocytes 1.32 Absolute Monocytes 2.16 H Absolute Eosinophils 0.00 Absolute Basophils 0.04 RBC Morphology Normal Sodium 132 L Potassium 2.9 L Chloride 96 L Carbon Dioxide 32.0 Anion Gap 4.0 BUN 24 H Creatinine 1.2 Est GFR (CKD-EPI 2020) 62.67 Glucose 150 H Calcium 8.4 L Total Bilirubin 0.8 AST 14 L ALT 18 Alkaline Phosphatase 78 Total Protein 7.3 Albumin 3.3 L Lipase 50 COVID-19 Source Nasal/Nares Last Vital Signs Temp 99.0 F 03/13/22 13:48 Pulse 90 03/13/22 13:48 Resp 16 03/13/22 13:48 BP 139/63 03/13/22 13:48 Pulse Ox 94 03/13/22 13:48
[2022-03-13] MEDS: PIPERACILLIN/TAZO 3.375 GM in Normal Saline 50 ML IVPB ×2 (16:10→20:54)
[2022-03-13 16:31] LABS: Bilirubin Negative (Negative); Blood Negative (Negative); Clarity Clear (Clear); Glucose Negative (Negative); Ketones Negative (Negative); Leukocyte Esterase Negative (Negative); Nitrite Negative (Negative); Urobilinogen 0.2 EU/dL (Up TO 0.2)
[2022-03-13] MEDS: Lactated Ringers 1,000 ML 30 ML IV (16:47)
[2022-03-13] MEDS: Bupivacaine 0.25% Pres-Free 30 ML VIAL (17:08)
[2022-03-13] MEDS: ACETAMINOPHEN 1,000 MG/100 ML BTL 100 MG (17:39)
--- NOTE | 2022-03-13 17:54 | GB_PTH ---
PATIENT: Tony He LOC: U#:[id number] AGE/SX: 76/M ROOM: 225 RE03/13/[address]: Desirae Sanchez MD : 1945 BED: A DIS: 03/15/2022 SPEC #: [id number] RECD: 03/14/22 12:29 STATUS: LAKISHA REQ #: [id number] ALICE: 03/13/22 17:[address]: Desirae Sanchez DEPT: Surgical Specimen RECD BY: Cathy Hernandez ENTERED: 03/14/22 12:30 SP TYPE: GB OTHR DR: Unknown,Unknown Tissues: 1 - GALLBLADDER Procedures: GROSS AND MICRO LEVEL 3 Comments: [id number]
[2022-03-13] MEDS: Cellulose,Oxidized 4X8 1 PACKET MC (17:57)
--- NOTE | 2022-03-13 19:00 | W.ANESPOSTOP ---
Postoperative Evaluation Date, Time and Location Date Performed: 03/13/22 Time Performed: 19:00 Patient Location: PACU Vital Signs Most Recent Imported Vital Signs: Most Recent Vital Signs Temp Pulse Resp BP Pulse Ox 36.6 C 72 24 139/53 L 95 03/13/22 18:56 03/13/22 18:56 03/13/22 18:56 03/13/22 18:56 03/13/22 18:56 Pain Score Most Recent Pain Score: Most Recent Pain Score Pain Level 5 03/13/22 13:48 Assessment Mental Status: Arousable with meaningful communication Airway and Respiratory Function: Patent airway with normal (patient baseline) respiratory exam Cardiovascular Function: Hemodynamically Stable Hydration Status: Adequately Hydrated Nausea & Vomiting: No Nausea or Vomiting Pain: Pain is tolerable per patient Peripheral Nerve Block: Patient did not receive a nerve block
--- NOTE | 2022-03-13 19:07 | W.PM.OP ---
Date of service: 03/13/22 Time of Service: 19:07 Operative Note Operative Note DATE OF PROCEDURE: 03/13/22 PRE-OP DIAGNOSIS: acute cholecystitis Umbilical hernia POST-OP DIAGNOSIS: other (acute on chronic cholecystitis and umbilical hernia) PROCEDURE: Laparoscopic Cholecystectomy Primary umbilical hernia repair SURGEON: Desirae Sanchez CONTROL VALVE TECHNICIAN: Brianna Roy Refer to Anesthesia Record ESTIMATED BLOOD LOSS: 50 PATHOLOGY: other (Gallbladder) COMPLICATIONS: None Patient was transported to: PACU Patient's condition: stable Implants: None Indications: Mr. Jimenez is a 76-year-old gentleman, with a? past medical history significant for hypertension, cardiac stent placement (2011), known gallstones, presenting for ongoing right upper quadrant pain, mild nausea, associated with fatigue. US and WBC are consistent with acute cholecystitis. Discussed Laparoscopic Cholecystectomy, possibly open. Risks, benefits and complications have been reviewed. Questions have been answered to his satisfaction and he wishes to proceed.? No guarantees were given or implied. he also has an umbilical hernia. Discussed primary repair of his hernia. Findings: Gallbladder with infected bile. One larger stone. Thickened gallbladder with edema Procedure Description: After informed consent was obtained the patient was brought to the operating room, placed in a supine position and monitors were applied. SCDs were applied to his lower extremities and he was placed under general anesthesia and intubated without difficulty. Abdominal hair was clipped. His abdomen was then prepped and draped in a sterile fashion using ChloraPrep. At this point a timeout was done and the patient's name, date of , procedure type, allergies to medications, metal in her body, antibiotic and DVT prophylaxis, and fire risk was assessed. Next 0.25% Bupivocaine was injected just above the umbilicus into the dermis and subcutaneous tissue. A 5 mm incision was made with an 11 blade. The subcutaneous tissue was dissected bluntly with a hemostat. The hernia defect was identified and a 5 mm port was placed under direct visualization. The abdomen was insuflated and then 3 more ports were placed. A 12 mm port was placed in the subxiphoid area and two 5 mm ports were placed in the right upper quadrant. Omentum was noted to be adherred to the Gallbladder. There was also fibrinous tissue noted from the Gallbladder to the abdominal wall. The omentum was gently removed using a zach dissector with cautery. The omentum was also adhered to the right lobe of the liver. The omentum was dissected away from the liver. Some bleeding was noted on the liver and this was cauterized. The liver was inspected and looked normal. The patient's bed was then turned to the left and her head was brought up. The Gallbladder was taught and the wall was thickened. A laparoscopic needle tip was used to removed bile from the Gallbladder and this was sent for culture. The Gallbladder was then grasped at the dome and pushed towards the right shoulder, this allowed me to visualize the neck of the gallbladder. The neck was grasped and pulled towards the right flank and down allowing me to visualize the lymph node. Using a [place] dissector with cautery the lymph node was gently dissected away from the tissues. The fatty tissue was also dissected away from the Gallbladder neck circumferentially until I was able to see the cystic duct. The cystic duct was identified it was normal in size. The duct was dissected 360 degrees using the [place] dissector in order for me to visualize its entrance into the gallbladder. Liver was noted behind it. There were no other structures right behind. Critical view was achieved. 3 clips were placed one proximal and 2 distal and the cystic duct was cut. The cystic artery was then identified and dissected 360 degrees. It was located just medial to the cystic duct. It was visualized going into the gallbladder. Once dissected 3 more clips were placed one proximal and 2 distal and the artery was cut. Using the hook dissector the gallbladder was then dissected away from the liver bed and placed into an Endo Catch bag and pulled through the 12 mm port site. The 12 mm port was placed back into the abdomen under direct visualization. The liver bed was inspected. Bleeding was noted. The abdomen was then irrigated with a liter of normal saline. A piece of surgicell was then applied to the liver bed and pressure was held with a raytech. While holding the raytech in place the abdomen was irrigated with 2 more liters of NS until the effluent was clear. Once all the fluid was suctioned out, the raytech and surgicell was removed. A sponge count was done and was correct. Next the liver bed was inspected again and no bleeding was noted. A 15 FR drain was placed through one of the RUQ 5 mm ports and positioned under the liver in the GAllbladder fossa. The drain was secured with 3-0 Nylon to the skin. The 12 mm and the 1 right upper quadrant ports were removed under direct visualization and no bleeding was noted from the fascia. The abdomen was deflated completely and lastly the umbilical port was removed. Next the incision above the umbilicus was increased with an 11 blade. The fascia was grasped and the hernia defect was closed with a 0 vicryl running suture. The fascia of the 12 mm port site was also grasped with kochers and closed with a 0 vicryl running suture. The skin was cleaned and the dermis off all three incisions were closed with 4-0 Monocryl. The skin was dried and skin affix was applied over the closed incisions. 4x4 were applied around the drain and secured with tape. Needle, instrument and sponge counts were correct at the end of the case. At this point the patient was woken up, extubated and taken back to recovery in stable condition. There were no immediate complications.
[2022-03-13] MEDS: Normal Saline 1,000 ML 30 ML IV (20:00)
[2022-03-13] MEDS: Docusate Sodium 100 MG CAP PO (21:24)
[2022-03-13] MEDS: Carvedilol 25 MG TAB PO (21:24)
[2022-03-13] MEDS: Enoxaparin 40 MG/0.4 ML SYR SC (21:24)
[2022-03-13] MEDS: Pantoprazole 40 MG VIAL IVP (21:25)
[2022-03-14] MEDS: Ketorolac 15 MG/ML VIAL IVP ×5 (00:48→23:53)
[2022-03-14 02:03] VITALS: BP 111/61; PULSE 70; RESP 14; TEMP 36.5; O2SAT 93
[2022-03-14] MEDS: PIPERACILLIN/TAZO 3.375 GM in Normal Saline 50 ML IVPB ×4 (02:05→20:21)
[2022-03-14 05:57] VITALS: BP 132/66; PULSE 69; RESP 14; TEMP 37; O2SAT 94
[2022-03-14 06:14] LABS: Abs Immature Grans 0.03 10^3/uL (0.0-0.06); Absolute Basophil Count 0.02 10^3/uL (0.0-0.2); Absolute Monocyte Count 0.97 10^3/uL (0.1-0.8); Basophils % 0.2; HCT 37.9 % (40.0-50.0); HGB 12.8 g/dL (13.5-17.5); Immature Grans % 0.3; Lymphocytes % 5.5; MCH 29.2 pg (27.0-33.0); MCHC 33.8 % (32.0-36.0); MCV 87 fL (80-95); Monocytes % 8.8; Neutrophils % 85.2; Platelet Count 164 10^3/uL (130-400); RBC 4.38 10^6/uL (4.36-5.78); RDW 12.1 % (11.8-14.1); RDW-SD 38.9 fL; WBC 10.99 10^3/uL (4.4-10.8)
[2022-03-14 06:28] LABS: Absolute Neutrophil Count 9.36 10^3/uL (1.2-6.7)
[2022-03-14 06:32] LABS: Anion Gap 6.3 mmol/L (3-11); BUN 29 mg/dL (7-18); CO2 27.7 mmol/L (21.0-32.0); CREATININE 1.4 mg/dL (0.70-1.30); Calcium 8.2 mg/dL (8.5-10.1); Chloride 103 mmol/L (98-107); Estimated GFR 52.09 (mL/min/1.73m2); Glucose 153 mg/dL (74-106); Potassium 3.2 mmol/L (3.5-5.1); Sodium 137 mmol/L (136-145)
[2022-03-14 07:14] VITALS: BP 113/58; PULSE 71; RESP 17; TEMP 37; O2SAT 94
[2022-03-14] MEDS: Carvedilol 25 MG TAB PO ×2 (08:01→19:59)
[2022-03-14] MEDS: amLODIPine 2.5 MG TAB PO (08:01)
[2022-03-14] MEDS: Chlorthalidone 25 MG TAB 12.5 MG PO (08:01)
[2022-03-14] MEDS: Multivitamin TAB 1 TAB PO (08:01)
[2022-03-14] MEDS: Docusate Sodium 100 MG CAP PO ×2 (08:04→19:59)
--- NOTE | 2022-03-14 08:29 | PGE_ITS ---
Date of Service Date of service: 03/14/22 Time of Service: 08:30 Assessment and Plan Assessment and plan (1) Acute cholecystitis: Status: Acute Assessment and plan: Postop day #1 status post laparoscopic cholecystectomy We will continue with IV antibiotics Regular diet Continue with pain control Strongly encouraged ambulation and sitting in the chair throughout the day Continue pulmonary toilet Awaiting bile cultures Patient seen and examined. Agree with above. bile- gram neg rods Zosyn D#2 K replaced cont walking drain- minimal output/ser-sang. Should be able to DC prior to discharge. Hopefully DC home in a.m. Subjective Subjective Interval history since last seen: Arrived with patient resting comfortably in bed. He states that he is having some moderate amount of abdominal tenderness. He denies having any nausea or vomiting. Patient denies having any fevers, chills or night sweats. Exam Const General: cooperative, healthy appearing and comfortable Orientation: alert and oriented x3 Resp Effort & Inspection: normal respiratory effort, no audible wheezes and no cough GI Inspection: normal to inspection Palpation: soft, no guarding and tender (Generalized) Auscultation: normal bowel sounds Other: Serosanguineous fluid in the IVAN drain. Incision sites are well approximated with skin affix in place. Mild ecchymosis located around the incision sites. Objective Last Vital Signs Temp 37.0 C 03/14/22 07:14 Pulse 71 03/14/22 07:14 Resp 17 03/14/22 07:14 BP 113/58 L 03/14/22 07:14 Pulse Ox 94 03/14/22 07:14 Laboratory Results - last 24 hr 03/13/22 03/13/22 03/13/22 14:02 14:02 15:10 WBC 18.31 H RBC 5.05 Hgb 14.9 Hct 42.6 MCV 84 MCH 29.5 MCHC 35.0 RDW 11.9 Plt Count 206 MPV 10.1 Immature Gran % 0.5 Neutrophils % 80.3 Lymphocytes % 7.2 Monocytes % 11.8 Eosinophils % 0.0 Basophils % 0.2 Nucleated RBC % 0.0 Absolute Neutrophils 14.70 H Absolute Lymphocytes 1.32 Absolute Monocytes 2.16 H Absolute Eosinophils 0.00 Absolute Basophils 0.04 RBC Morphology Normal Sodium 132 L Potassium 2.9 L Chloride 96 L Carbon Dioxide 32.0 Anion Gap 4.0 BUN 24 H Creatinine 1.2 Est GFR (CKD-EPI 2020) 62.67 Glucose 150 H Calcium 8.4 L Total Bilirubin 0.8 AST 14 L ALT 18 Alkaline Phosphatase 78 Total Protein 7.3 Albumin 3.3 L Lipase 50 Urine Color Urine Clarity Urine pH Ur Specific [place] Urine Protein Urine Ketones Urine Blood Urine Nitrite Urine Bilirubin Urine Urobilinogen Ur Leukocyte Esterase Urine Glucose COVID-19 Source Nasal/Nares SARS-CoV-2 (PCR) Negative 03/13/22 03/14/22 03/14/22 16:11 05:32 05:32 WBC 10.99 H RBC 4.38 Hgb 12.8 L D Hct 37.9 L MCV 87 MCH 29.2 MCHC 33.8 RDW 12.1 Plt Count 164 MPV 11.0 Immature Gran % 0.3 Neutrophils % 85.2 Lymphocytes % 5.5 Monocytes % 8.8 Eosinophils % 0.0 Basophils % 0.2 Nucleated RBC % 0.0 Absolute Neutrophils 9.36 H Absolute Lymphocytes 0.60 L Absolute Monocytes 0.97 H Absolute Eosinophils 0.00 Absolute Basophils 0.02 RBC Morphology Sodium 137 Potassium 3.2 L Chloride 103 Carbon Dioxide 27.7 Anion Gap 6.3 BUN 29 H Creatinine 1.4 H Est GFR (CKD-EPI 2020) 52.09 Glucose 153 H Calcium 8.2 L Total Bilirubin AST ALT Alkaline Phosphatase Total Protein Albumin Lipase Urine Color Yellow Urine Clarity Clear Urine pH 6.0 Ur Specific [place] 1.010 Urine Protein Negative Urine Ketones Negative Urine Blood Negative Urine Nitrite Negative Urine Bilirubin Negative Urine Urobilinogen 0.2 Ur Leukocyte Esterase Negative Urine Glucose Negative COVID-19 Source SARS-CoV-2 (PCR) PAWSS Have you Been Recently Intoxicated or Drunk Within the Last 30 days?: No Have you Ever Experienced Previous Episodes of Alcohol Withdrawal?: No Have you ever Experienced Withdrawal Seizures?: No Have you ever Experienced Delirium Tremens(DT)s?: No Have you ever undergone Alcohol Rehabilitation Treatment (i.e, inpt ot outpatient treatment programs)?: No Have you ever Experienced Blackouts?: No Have you ever Combined Alcohol with other Downers within the last 90 days?: No Have you ever Combined Alcohol with any other Substance of Abuse during the last 90 days?: No Positive Blood Alcohol level on Presentation? [PCS.BAL]: No Evidence of Increased Autonomic Activity (i.e. HR>120, tremor, sweating, agitation, nausea)?: No Result: 0
--- NOTE | 2022-03-14 09:20 | INITIAL_ITS ---
- If Service Date Differs Date of service: 03/14/22 Time of Service: 09:20 Care Management Initial Assess REASON FOR HOSPITALIZATION:: Acute Cholecystitis PAST MEDICAL HISTORY/PAST SURGICAL HISTORY:: All Active Problems (Updated 03/13/22 @ 16:07 by Desirae Sanchez MD). Abdominal pain (Acute). Acute cholecystitis (Acute). Medical History (Updated 03/13/22 @ 16:07 by Desirae Sanchez MD). CVD (cardiovascular disease). Hypertension. Surgical History (U pdated 03/13/22 @ 16:07 by Desirae Sanchez MD). History of heart artery stent (~2011) PREVIOUS FUNCTIONAL STATUS/SOCIAL/FAMILY SUPPORTS:: Tony and his moved to [facility] from [place] 2 weeks ago to be closer to his daughter and grandchildren. He is active and independent at baseline. He enjoys cycling outdoors in his spare time. CURRENT FUNCTIONAL STATUS:: Tony was sitting up in his chair, visiting with his and daughter. He is alert, oriented and easy to engage in conversation. He is looking to establish care with a local PCP, CM will offer list of local providers. ADVANCE DIRECTIVES:: None on file. Has patient been provided with info about the portal/API?: Yes Did the patient sign up for the portal?: No CODE STATUS:: Full Code INSURANCE COVERAGE / FINANCIAL ISSUES:: [employer]. Medicare CURRENT HOME/COMMUNITY SERVICES/EQUIPMENT:: None PRIMARY CARE PHYSICIAN:: No local. POTENTIAL DISCHARGE NEEDS:: Follow up appt with Surgical and [facility] (Dr. Mack). CM will provide patient a list of local PCP's. PATIENT/FAMILY EDUCATION NEEDS:: Review discharge instructions, limitations, medications and plan to follow up with community providers. ask me three. TRANSPORTATION:: via private vehicle with family PLAN:: Anticipate Tony will discharge home with no new services when medically ready. He will follow discharge plan of care as prescribed and follow up with community providers.
[2022-03-14 15:43] VITALS: BP 115/58; PULSE 65; RESP 17; TEMP 37.3; O2SAT 93
--- NOTE | 2022-03-14 16:31 | CHAPLAIN ---
Tony was resting in when I visited. He said he moved her two weeks ago, from [place], to be closer to his daughter and grandchildren. He and his bought a home here, but also have a place in [place]. Each time he has visited [place], Tony said he has gotten sick, but he believes it just a coincidence. Tony said he is feeling better than yesterday already.
[2022-03-14] MEDS: POTASSIUM CHLORIDE 10 MEQ/100 ML BAG 100 MEQ IVPB (17:42)
[2022-03-14] MEDS: Normal Saline Flush 10 ML SYR IVP (19:59)
[2022-03-14] MEDS: Pantoprazole 40 MG VIAL IVP (19:59)
[2022-03-14] MEDS: Enoxaparin 40 MG/0.4 ML SYR SC (19:59)
[2022-03-14] MEDS: Potassium Chloride 20 MEQ TABCR PO (19:59)
[2022-03-14 23:25] VITALS: BP 110/55; PULSE 58; RESP 18; TEMP 36.6; O2SAT 93
[2022-03-15] MEDS: PIPERACILLIN/TAZO 3.375 GM in Normal Saline 50 ML IVPB ×2 (02:05→08:27)
[2022-03-15 03:00] VITALS: BP 132/65; PULSE 60; RESP 14; TEMP 36.1; O2SAT 92
[2022-03-15] MEDS: Ketorolac 15 MG/ML VIAL IVP (05:25)
[2022-03-15 06:24] LABS: Abs Immature Grans 0.01 10^3/uL (0.0-0.06); Absolute Basophil Count 0.01 10^3/uL (0.0-0.2); Absolute Lymphocyte Count 0.83 10^3/uL (1.2-3.4); Absolute Monocyte Count 0.78 10^3/uL (0.1-0.8); Absolute Neutrophil Count 7.84 10^3/uL (1.2-6.7); Basophils % 0.1; HCT 32.6 % (40.0-50.0); HGB 11.2 g/dL (13.5-17.5); Immature Grans % 0.1; Lymphocytes % 8.8; MCH 29.6 pg (27.0-33.0); MCHC 34.4 % (32.0-36.0); MCV 86 fL (80-95); MPV 11.5 fL (8.0-11.0); Monocytes % 8.2; Neutrophils % 82.8; Platelet Count 160 10^3/uL (130-400); RBC 3.79 10^6/uL (4.36-5.78); RDW 12.5 % (11.8-14.1); RDW-SD 39.8 fL; WBC 9.47 10^3/uL (4.4-10.8)
[2022-03-15 06:37] LABS: Anion Gap 6.2 mmol/L (3-11); BUN 42 mg/dL (7-18); CO2 28.8 mmol/L (21.0-32.0); CREATININE 1.5 mg/dL (0.70-1.30); Calcium 8.2 mg/dL (8.5-10.1); Chloride 104 mmol/L (98-107); Estimated GFR 47.95 (mL/min/1.73m2); Glucose 118 mg/dL (74-106); Potassium 3.3 mmol/L (3.5-5.1); Sodium 139 mmol/L (136-145)
[2022-03-15 07:23] VITALS: BP 128/64; PULSE 54; RESP 16; TEMP 37; O2SAT 92
[2022-03-15] MEDS: Chlorthalidone 25 MG TAB 12.5 MG PO (08:27)
[2022-03-15] MEDS: Multivitamin TAB 1 TAB PO (08:27)
[2022-03-15] MEDS: Carvedilol 25 MG TAB PO (08:27)
[2022-03-15] MEDS: amLODIPine 2.5 MG TAB PO (08:28)
[2022-03-15] MEDS: Docusate Sodium 100 MG CAP PO (08:28)
--- NOTE | 2022-03-15 09:10 | CMPROGNOTE_ITS ---
- If Service Date Differs Date of service: 03/15/22 Time of Service: 09:10 Care Management Progress Note S/O: A: 76 year old male admitted to [facility] on 03/13/22 Acute Cholecystitis P: Anticipate, Tony will discharge home with no new services via private vehicle with when medically ready. He will follow up with community providers and discharge plan of care as prescribed.
[2022-03-15] MEDS: Potassium Chloride 20 MEQ TABCR 40 MEQ PO (09:37)
[2022-03-15] MEDS: Normal Saline 1,000 ML 1000 ML IV (09:37)
--- NOTE | 2022-03-15 12:33 | DSE_ITS ---
Date of service: 03/15/22 Time of Service: 12:33 DS: Diagnosis Discharge Diagnosis (1) Acute cholecystitis: Status: Acute Discharge Plan Disposition Patient Disposition: HOME Condition: Stable Discharge Details Reason For Visit: Acute Cholecystitis Admit Date/Time: 03/13/22 19:01 Admit Provider: Desirae Sanchez Attending Provider: Desirae Sanchez Primary Care Provider: Unknown,Unknown Hospital Course Hospital Course: Mr. He was admitted on Friday for acute cholecystitis. He underwent Laparoscopic Cholecystectomy on Friday evening. Blood Cx were negative. Bile Cx were Positive for Gram negative rods. He is eating and drinking without pain or N/V. His Leukocytosis has resolved. His IVAN drain is putting out minimal ser osanguinous discharge. He is afebrile. Will d/c to home on augmentin for 8 days. Follow up next week in the office Home Meds and New Rx's Prescriptions: New amoxicillin-pot clavulanate 875-125 mg tablet 1 tab PO Q12H 8 Days Qty: 16 0RF Continued carvedilol 25 mg Tablet 25 mg PO BID chlorthalidone 25 mg Tablet 12.5 mg PO DAILY multivitamin Tablet 1 tab PO DAILY losartan 100 mg Tablet 100 mg PO DAILY nitroglycerin [Nitrostat] 0.4 mg Tablet, Sublingual 0.4 mg sublingual DIRECTED amlodipine 2.5 mg Tablet 2.5 mg PO DAILY Discharge Instructions Instructions: Low Fat Diet (GEN) Additional Instructions: Activity at Home after surgery: 1. Make sure you walk outside at least 4 times per day 2. You should be able to climb a flight of stairs 3. No driving while in pain or taking pain medications 4. No strenuous activity or heavy lifting for 2 weeks (laparoscopic surgery) Diet, Nutrition, & wound healin. Avoid alcohol until after you are recovered from your surgery 2. Make sure to eat plenty of lean protein (meat, fish, eggs, cottage cheese, beans) 3. Eat a variety of fruits and vegetables. Eat plenty of high fiber foods to avoid constipation. 4. Drink plenty of liquids to stay hydrated and avoid constipation Pain Medications: 1. Tylenol 650mg every 6 hours as needed and Ibuprofen 600 mg every 6 hours as needed. You may alternate between the 2 medications every 3 hours For Constipation: 1. Take Milk of Magnesia or MiraLax as needed for constipation Other: 1. You may shower daily. Do not scrub the incisions 2. Do not soak the incisions for 1 week 3. You may alternate ice and heat as needed for pain and swelling Wound Care: 1. Keep the incisions clean and dry 2. Remove dressing on Friday. If the wound is still open please cover with a bandaid Please call our office if you develop: 1. Fevers >101.5 2. Nausea or Vomiting 3. Worsening pain 4. Redness and thick discharge from the wounds If after hours please call the Hospital at and ask to speak to the on-call surgeon Referrals: Desirae Sanchez MD [ [facility] STAFF PHYSICIAN] - (next friday) Activity:: as above Equipment/Supplies:: No Equipment Needed Diet:: low fat Discharge Orders Discharge Orders: Discharge Order (Routine); Ordered 03/15/22 Ordered By: Desirae Sanchez DS: Summary Time Spent with Patient providing and/or coordinating discharge services: Less than 30 minutes Status at Discharge Functional status at discharge: independent ambulation Overall status at discharge: patient is back to baseline Mental Status: mental status grossly normal Speech and Movement: speech and movement normal Mood: congruent mood Affect: normal affect Exam Const General: cooperative, comfortable and no acute distress Orientation: alert and oriented x3 HENMT Head: normocephalic and atraumatic Resp Effort & Inspection: normal respiratory effort Auscultation: clear to auscultation bilaterally Cardio Rate: regular rate Rhythm: regular rhythm GI Inspection: normal to inspection Palpation: soft, no hepatosplenomegaly and tender (mild around the ruq drain) Auscultation: normal bowel sounds Psych Mental Status: mental status grossly normal Speech and Movement: speech and movement normal Mood: congruent mood Affect: normal affect DS: Data Vitals/I&O Vitals and I&O: Vital Signs Temperature 98.6 F 03/15/22 07:23 Temperature Source Tympanic 03/15/22 07:23 Pulse 54 L 03/15/22 07:23 Pulse Rhythm Regular 03/15/22 09:53 Respiratory Rate 16 03/15/22 07:23 Respiratory Effort Non-Labored 03/15/22 09:53 Respiratory Depth Normal 03/15/22 09:53 Respiratory Pattern Normal 03/15/22 09:53 Blood Pressure 128/64 03/15/22 07:23 Blood Pressure Position Sitting 03/13/22 13:48 Pulse Oximetry 92 03/15/22 07:23 Respiratory End-tidal CO2 33 03/13/22 19:10 Oxygen Delivery Method Room Air 03/15/22 07:23 Oxygen Flow Rate 0 03/15/22 07:23 Pain Level 0 03/15/22 07:23 Intake & Output 03/14/22 03/15/22 03/15/22 23:59 11:59 23:59 Intake Total 645 / 1500 1100 / 1100 Output Total 300 / 550 535 / 535 Balance 345 / 950 565 / 565 Intake: IV 645 / 1300 1100 / 1100 Output: Drainage 10 Right Lower Anterior Abdomen 10 10 Urine 300 / 500 525 / 525 Other: Urine Color Light Lilliam Dark Lilliam Urine Appearance Clear Clear Urine Odor None Voiding Methods Toilet Toilet Data Completed and Pending Labs on day of discharge: Labs from last 24 hours 03/15/22 03/15/22 05:18 05:18 WBC 9.47 RBC 3.79 L Hgb 11.2 L Hct 32.6 L MCV 86 MCH 29.6 MCHC 34.4 RDW 12.5 Plt Count 160 MPV 11.5 H Immature Gran % 0.1 Neutrophils % 82.8 Lymphocytes % 8.8 Monocytes % 8.2 Eosinophils % 0.0 Basophils % 0.1 Nucleated RBC % 0.0 Absolute Neutrophils 7.84 H Absolute Lymphocytes 0.83 L Absolute Monocytes 0.78 Absolute Eosinophils 0.00 Absolute Basophils 0.01 Sodium 139 Potassium 3.3 L Chloride 104 Carbon Dioxide 28.8 Anion Gap 6.2 BUN 42 H Creatinine 1.5 H Est GFR (CKD-EPI 2020) 47.95 Glucose 118 H Calcium 8.2 L Preliminary micro results at discharge 03/13/22 17:17 Surgical Culture - Preliminary Gallbladder - Bile Gram Negative Peter 03/13/22 15:15 Blood Culture - Preliminary Blood NO GROWTH 24 HOURS 03/13/22 15:07 Blood Culture - Preliminary Blood NO GROWTH 24 HOURS PFSH All Active Problems Abdominal pain (Acute) Acute cholecystitis (Acute) Medical History CVD (cardiovascular disease) Hypertension Surgical History History of heart artery stent (~2011) Social History Smoking/Tobacco Use Status: Former Tobacco Use Smoking risk assessment performed?: Yes Alcohol Intake: current Alcohol Intake frequency: 0-2 drinks per day Alcohol type: beer Drug use: Never Substance use type: does not use Do you feel safe at home: Yes Do you feel safe in your relationship?: Yes
--- NOTE | 2022-03-15 14:14 | PDOC.CMDIS ---
- If Service Date Differs Date of service: 03/15/22 Time of Service: 14:15 LACE Index Scoring Tool - Questions: Length of Stay (in days): 2 Acuity (Admit via E.D.?): Yes E.D. Visits: 2 - Answers: Total Score: 7 Risk of Readmission: Low Risk Care Management Discharge Reason for Hospitalization: Acute Cholecystitis Discharge Plan: Tony is discharged home via private vehicle with family. New RX is transmitted to [facility]. Tony will follow up with Dr. Sanchez on 03/19/22 as scheduled. Hospital follow up appointment with Dr. Mack may be intiated by patient, if needed. CM provided patient with a list of local PCP's since he is looking to establish care with a local PCP. Patient/Family Education Needs: Review discharge instructions, limitations, medications and plan to follow up with community providers. ask me three.
== END 2022-03-15 14:16 | disposition home or self-care (01) | DRG 418 ==
LOC: ER 15:19 → DSU 16:30 → MS 19:36
PROVIDERS: Admitting Provider Surgery; Emergency Provider Physician Assistant; Visit Provider Surgery
PROC: 0FT44ZZ Resection of Gallbladder, Percutaneous Endoscopic Approach (ICD-10-PCS; CPT 47562; principal; 2022-03-13 16:00)
PROC: 0FT44ZZ Resection of Gallbladder, Percutaneous Endoscopic Approach (ICD-10-PCS; CPT 47562; 2022-03-13 16:00)
DX: K80.12 Calculus of gallbladder with acute and chronic cholecystitis without obstruction (principal); K91.61 Intraoperative hemorrhage and hematoma of a digestive system organ or structure complicating a digestive system procedure; K42.9 Umbilical hernia without obstruction or gangrene; I10 Essential (primary) hypertension; Z95.5 Presence of coronary angioplasty implant and graft; Z79.899 Other long term (current) drug therapy; K82.8 Other specified diseases of gallbladder
CPT/HCPCS: 47562; 49652; 36410; 36415; 80048; 80053; 83690; 87040; 87077; 87635; 93005; 96361; 96365; 96366; 96367; 99223; 99284; 99285; J1650; 76705; 81003; 85025; 87070; 87186; 87205; 88304; 93010; J0131; J1100; J1885; J2405; J2543; J2704; J3475; J3480

== ENCOUNTER 2022-03-19 14:27 | Outpatient (CLI) | payer MEDICARE, OTHER, SELFPAY ==
[2022-03-19 14:42] LABS: Abs Immature Grans 0.04 10^3/uL (0.0-0.06); Absolute Basophil Count 0.03 10^3/uL (0.0-0.2); Absolute Eosinophil Count 0.35 10^3/uL (0.0-0.7); Absolute Lymphocyte Count 1.85 10^3/uL (1.2-3.4); Absolute Monocyte Count 0.77 10^3/uL (0.1-0.8); Absolute Neutrophil Count 5.73 10^3/uL (1.2-6.7); Basophils % 0.3; HCT 37.8 % (40.0-50.0); HGB 12.7 g/dL (13.5-17.5); Immature Grans % 0.5; Lymphocytes % 21.1; MCH 29.8 pg (27.0-33.0); MCHC 33.6 % (32.0-36.0); MCV 89 fL (80-95); MPV 10.3 fL (8.0-11.0); Monocytes % 8.8; Neutrophils % 65.3; Platelet Count 295 10^3/uL (130-400); RBC 4.26 10^6/uL (4.36-5.78); RDW 12.3 % (11.8-14.1); RDW-SD 40.1 fL; WBC 8.77 10^3/uL (4.4-10.8)
[2022-03-19 15:58] LABS: Anion Gap 6.8 mmol/L (3-11); BUN 24 mg/dL (7-18); CO2 31.2 mmol/L (21.0-32.0); CREATININE 1.3 mg/dL (0.70-1.30); Calcium 8.9 mg/dL (8.5-10.1); Chloride 102 mmol/L (98-107); Estimated GFR 56.93 (mL/min/1.73m2); Glucose 105 mg/dL (74-106); Sodium 140 mmol/L (136-145)
== END 2022-03-19 14:28 | disposition home or self-care (01) ==
LOC: LBO 14:29
PROVIDERS: Visit Provider Surgery
DX: K81.0 Acute cholecystitis (principal); R61 Generalized hyperhidrosis; R74.8 Abnormal levels of other serum enzymes
CPT/HCPCS: 36415; 80048; 85025